=== PATIENT | female | born 2000 | race Caucasian/White ===

== ENCOUNTER 2020-05-30 10:55 | Outpatient (REF) | payer OTHER, SELFPAY | END 2020-05-30 10:56 | disposition home or self-care (01) | LOC: HO.LAB 10:55 | PROVIDERS: Visit Provider Internal Medicine | DX: Z20.828 Contact with and (suspected) exposure to other viral communicable diseases (principal) | CPT/HCPCS: 87635 ==

== ENCOUNTER 2021-07-14 14:09 | Outpatient (REF) | payer OTHER, SELFPAY ==
--- NOTE | ~2021-07-14 | XR_ITS ---
EXAMINATION: XR CHEST CLINICAL INFORMATION: Cough COMPARISON: None TECHNIQUE: 2 views of the chest were obtained. FINDINGS: No significant abnormality is noted involving the heart, lungs, mediastinum, bony thorax or soft tissues. XR/XR chest 2V IMPRESSION: Unremarkable examination.
== END 2021-07-14 14:10 | disposition home or self-care (01) ==
LOC: HO.XRAY 14:09
PROVIDERS: Visit Provider Pediatrics
DX: R05.9 Cough, unspecified (principal); R50.9 Fever, unspecified
CPT/HCPCS: 71046